=== PATIENT | female | born 1955 | race Caucasian/White ===

== ENCOUNTER 2018-09-16 04:18 | Inpatient (IN) | payer OTHER ==
[2018-09-16] MEDS ORDERED: ONDANSETRON 4 MG INJ IV (05:30)
[2018-09-16] MEDS ORDERED: NACL 0.9% 3 ML SYG IV (05:30)
[2018-09-16] MEDS ORDERED: NITROGLYCERIN (SL) 0.4 MG TAB SL (05:30)
[2018-09-16] MEDS ORDERED: BISACODYL (EC) 5 MG TAB PO (05:30)
[2018-09-16] MEDS ORDERED: DOCUSATE SODIUM 100 MG CAP PO (05:30)
[2018-09-16 06:13] LABS: ADD MAN DIFF? NO
[2018-09-16 06:17] LABS: BASOPHILS % 0.4 % (0.0-2.0); EOSINOPHILS # 0.1 10^3/ul (0.0-0.5); HEMATOCRIT 33.8 % (37.0-47.0); HEMOGLOBIN 11.3 g/dl (12.0-16.0); LYMPHOCYTES # 1.4 10^3/ul (0.8-2.9); LYMPHOCYTES % 20.7 % (15.0-51.0); MEAN CORPUSCULAR HEMOGLOBIN 29.7 pg (29.0-33.0); MEAN CORPUSCULAR HGB CONC 33.4 g/dl (32.0-37.0); MEAN CORPUSCULAR VOLUME 88.7 fl (82.0-101.0); MEAN PLATELET VOLUME 10.7 fl (7.4-10.4); MONOCYTE # 0.3 10^3/ul (0.3-0.9); MONOCYTES % 4.7 % (0.0-11.0); NEUTROPHILS % 72.8 % (39.0-77.0); PLATELET COUNT 254 10^3/UL (140-415); RED BLOOD COUNT 3.81 10^6/ul (4.20-5.40); RED CELL DISTRIBUTION WIDTH 13.2 % (11.5-14.5)
[2018-09-16 06:17] LABS: WHITE BLOOD COUNT 6.9 10^3/ul (4.8-10.8)
[2018-09-16 06:35] LABS: ALANINE AMINOTRANSFERASE 80 IU/L (13-69); ALBUMIN 3.9 g/dl (3.3-4.9); ALBUMIN/GLOBULIN RATIO 1.39; ALKALINE PHOSPHATASE 101 IU/L (42-121); ANION GAP 10 (5-13); ASPARTATE AMINO TRANSFERASE 63 IU/L (15-46); BILIRUBIN,INDIRECT 0.8 mg/dl (0-1.1); BILIRUBIN,TOTAL 0.8 mg/dl (0.2-1.3); BLOOD UREA NITROGEN 21 mg/dl (7-20); CALCIUM 9.5 mg/dl (8.4-10.2); CARBON DIOXIDE 28 mmol/L (21-31); CHLORIDE 101 mmol/L (97-110); CHOL/HDL RATIO 2.8 RATIO; CHOLESTEROL 101 mg/dl (100-200); CREATININE 0.74 mg/dl (0.44-1.00); Estimated GFR > 60 mL/min (>60); GLUCOSE 158 mg/dl (70-220); HDL CHOLESTEROL 36 mg/dl (35-98); LDL CHOLESTEROL,CALCULATED 44 mg/dl; MAGNESIUM 2.2 mg/dl (1.7-2.5); POTASSIUM 3.5 mmol/L (3.5-5.1); SODIUM 139 mmol/L (135-144); TOTAL PROTEIN 6.7 g/dl (6.1-8.1); TRIGLYCERIDES 107 mg/dl (0-149)
[2018-09-16] MEDS ORDERED: ALBUTEROL HFA 8 GM INHALER INH (07:00)
[2018-09-16 07:12] LABS: HEMOGLOBIN A1C 6.3 % (0-5.9)
[2018-09-16] MEDS: GABAPENTIN 300 MG CAP PO ×2 (08:17→22:10)
[2018-09-16] MEDS: LOSARTAN 25 MG TAB PO ×2 (08:18→22:12)
[2018-09-16] MEDS: AMLODIPINE 10 MG TAB PO (08:18)
[2018-09-16] MEDS: HEPARIN 5,000 UNIT/1 ML VIAL SC ×3 (08:20→22:28)
[2018-09-16] MEDS: FUROSEMIDE 40 MG INJ IV ×2 (08:20→17:25)
[2018-09-16] MEDS: APIXABAN 5 MG TABLET PO ×2 (08:20→22:10)
[2018-09-16] MEDS: ASPIRIN (EC) 325 MG TAB PO (08:27)
[2018-09-16] MEDS: ACETAMINOPHEN 325 MG TAB PO ×2 (08:32→17:24)
[2018-09-16] MEDS: DOCUSATE SODIUM 100 MG CAP PO ×2 (09:00→22:09)
[2018-09-16] MEDS: MONTELUKAST 5 MG TAB PO (10:28)
[2018-09-16] MEDS ORDERED: HYDROCODONE/APAP (5/325) TAB PO (14:00)
[2018-09-16] MEDS: SPIRONOLACTONE 25 MG TAB PO (17:25)
[2018-09-16] MEDS: ATORVASTATIN 10 MG TAB PO (22:09)
[2018-09-16] MEDS: INSULIN GLARGINE [LANTus] (100 UNITS/ML) SYG SC (22:28)
[2018-09-17] MEDS: FUROSEMIDE 40 MG INJ IV (06:21)
[2018-09-17] MEDS: HEPARIN 5,000 UNIT/1 ML VIAL SC (06:29)
[2018-09-17 06:50] LABS: ADD MAN DIFF? NO
[2018-09-17 06:55] LABS: BASOPHILS % 0.4 % (0.0-2.0); EOSINOPHILS # 0.2 10^3/ul (0.0-0.5); EOSINOPHILS % 3.1 % (0.0-7.0); HEMATOCRIT 31.7 % (37.0-47.0); HEMOGLOBIN 10.3 g/dl (12.0-16.0); LYMPHOCYTES # 2.2 10^3/ul (0.8-2.9); LYMPHOCYTES % 27.9 % (15.0-51.0); MEAN CORPUSCULAR HEMOGLOBIN 29.7 pg (29.0-33.0); MEAN CORPUSCULAR HGB CONC 32.5 g/dl (32.0-37.0); MEAN CORPUSCULAR VOLUME 91.4 fl (82.0-101.0); MONOCYTE # 0.7 10^3/ul (0.3-0.9); MONOCYTES % 8.3 % (0.0-11.0); NEUTROPHIL # 4.7 10^3/ul (1.6-7.5); PLATELET COUNT 236 10^3/UL (140-415); RED BLOOD COUNT 3.47 10^6/ul (4.20-5.40); RED CELL DISTRIBUTION WIDTH 13.2 % (11.5-14.5)
[2018-09-17 06:55] LABS: WHITE BLOOD COUNT 7.8 10^3/ul (4.8-10.8)
[2018-09-17 07:19] LABS: ALANINE AMINOTRANSFERASE 55 IU/L (13-69); ALBUMIN 3.4 g/dl (3.3-4.9); ALBUMIN/GLOBULIN RATIO 1.13; ALKALINE PHOSPHATASE 74 IU/L (42-121); ANION GAP 7 (5-13); ASPARTATE AMINO TRANSFERASE 33 IU/L (15-46); BILIRUBIN,INDIRECT 0.9 mg/dl (0-1.1); BILIRUBIN,TOTAL 0.9 mg/dl (0.2-1.3); BLOOD UREA NITROGEN 18 mg/dl (7-20); CALCIUM 8.8 mg/dl (8.4-10.2); CARBON DIOXIDE 30 mmol/L (21-31); CHLORIDE 104 mmol/L (97-110); CREATININE 0.79 mg/dl (0.44-1.00); Estimated GFR > 60 mL/min (>60); GLUCOSE 88 mg/dl (70-220); POTASSIUM 3.5 mmol/L (3.5-5.1); SODIUM 141 mmol/L (135-144); TOTAL PROTEIN 6.4 g/dl (6.1-8.1)
[2018-09-17] MEDS: ASPIRIN (EC) 325 MG TAB PO (08:58)
[2018-09-17] MEDS: LOSARTAN 25 MG TAB PO (08:58)
[2018-09-17] MEDS: DOCUSATE SODIUM 100 MG CAP PO (08:58)
[2018-09-17] MEDS: SPIRONOLACTONE 25 MG TAB PO (08:58)
[2018-09-17] MEDS: GABAPENTIN 300 MG CAP PO (08:58)
[2018-09-17] MEDS: APIXABAN 5 MG TABLET PO (08:58)
[2018-09-17] MEDS: MONTELUKAST 5 MG TAB PO (08:58)
[2018-09-18] MEDS ORDERED: ASPIRIN 81 MG TAB PO (09:00)
== END 2018-09-17 15:38 | disposition home or self-care (01) | DRG 292 ==
LOC: TEL 04:18
DX: I11.0 Hypertensive heart disease with heart failure (principal); I69.951 Hemiplegia and hemiparesis following unspecified cerebrovascular disease affecting right dominant side; Z95.5 Presence of coronary angioplasty implant and graft; E11.9 Type 2 diabetes mellitus without complications; I50.43 Acute on chronic combined systolic (congestive) and diastolic (congestive) heart failure
CPT/HCPCS: 71045; 80053; 80061; 82306; 82962; 83036; 83735; 84443; 85025; 93005; 93306